=== PATIENT | female | born 1985 | race Caucasian/White ===

== ENCOUNTER 2017-02-14 14:49 | Emergency (ER) | payer OTHER ==
--- NOTE | 2017-02-14 15:11 | EDM.PDOC ---
ED HPI GENERAL MEDICAL PROBLEM - General Stated Complaint: INFECTION ON HIP Time Seen by Provider: 02/14/17 15:11 Source of Information: Reports: Patient - History of Present Illness INITIAL COMMENTS - FREE TEXT/NARRATIVE: Patient is here today for pain and swollen lesion on the inside of her right thigh. She states it started a few days ago and has gotten progressively bigger and more tender. She states that she did feel like she had a fever today however when she checked it she had normal temperature. Patient is not diabetic. Has no history of bleeding or clotting disorders. Had no injury to the area to cause this. Perineal Area Pain Score (Numeric/FACES): 8 - Related Data Allergies Allergy/AdvReac Type Severity Reaction Status Date / Time anise oil Allergy Cannot Verified 02/14/17 15:12 Remember bee pollen Allergy Hives Verified 02/14/17 15:11 morphine Allergy Hallucinati Verified 02/14/17 15:11 ons Home Meds: Home Meds Hydrocodone/Acetaminophen [Hydrocodon-Acetaminophen 5-325] 1 each PO Q4HR PRN # 30 tablet 02/14/17 [Rx] Multivitamin [Daily Multiple Vitamin] 1 tab PO DAILY 02/14/17 [History] Sulfamethoxazole/Trimethoprim [Bactrim Ds Tablet] 1 each PO BID #20 tablet 02/14 [Rx] ED ROS GENERAL - Review of Systems Review Of Systems: See Below Constitutional: Reports: Chills. Denies: Fever, Malaise, Weakness, Fatigue Respiratory: Reports: No Symptoms Cardiovascular: Reports: No Symptoms Skin: Reports: Lumps, Other (Infection to the inside of her left groin) Neurological: Denies: No Symptoms Hematologic/Lymphatic: Reports: No Symptoms ED EXAM, SKIN/RASH Exam: See Below Exam Limited By: No Limitations General Appearance: Alert, WD/WN, Mild Distress Respiratory/Chest: No Respiratory Distress, Lungs Clear, Normal Breath Sounds Cardiovascular: Normal Peripheral Pulses, Regular Rate, Rhythm (Female) Exam: Other (Golf ball size left Bartholin gland abscess with surrounding warmth and erythema. This is quite tender. Lesion is not draining. ) ED SKIN PROCEDURES - I&D Site: Left Bartholin's gland abscess Skin Prep: Providone-Iodine (Betadine), Isopropyl Alcohol (Alcohol) Local Anesthesia - Bupivicaine (Marcaine): 0.5% Plain (9mL) Area Incised With: 11 Blade Drainage: Purulent, Bloody Probed to Break Up Loculations: Yes Sterile Dressing: None (Dressed with gauze and patient was given a pad as well.) Course - Vital Signs Text/Narrative:: Bartholin's gland abscess was drained on the left. Discussed wound care instructions with patient. Recommended warm sitz baths or warm washcloths this area. Will treat with Bactrim 10 days as well. Patient will follow-up with [facility] on Friday or return to the ER if needed. Last Recorded V/S: Last Vital Signs Temp 97.8 F 02/14/17 15:05 Pulse 100 02/14/17 15:05 Resp 16 02/14/17 15:05 BP 134/79 02/14/17 15:05 Pulse Ox 98 02/14/17 15:05 - Orders/Labs/Meds Meds: Medications Discontinued Medications Generic Name Dose Route Start Last Admin Trade Name Freq PRN Reason Stop Dose Admin Hydrocodone Bitart/Acetaminophen 1 tab 02/14/17 15:29 02/14/17 15:34 [place] 325-5 Mg PO 02/14/17 15:30 1 tab ONETIME ONE Administration Bupivacaine HCl 10 ml 02/14/17 15:54 02/14/17 15:59 Sensorcaine-Mpf 0.5% INJECT 02/14/17 15:55 10 ml ONETIME ONE Administration Departure - Departure Time of Disposition: 16:42 Disposition: Home, Self-Care 01 Condition: Good Clinical Impression: Bartholin's gland abscess - Discharge Information Prescriptions: Hydrocodone/Acetaminophen [Hydrocodon-Acetaminophen 5-325] 1 each PO Q4HR PRN # 30 tablet PRN Reason: Pain Sulfamethoxazole/Trimethoprim [Bactrim Ds Tablet] 1 each PO BID #20 tablet Referrals: PCP,Not In Area [Primary Care Provider] - Additional Instructions: Skin warm bath for 15 minutes several times per day or use a warm washcloth to this area. Take full dose of antibiotic, this will cause diarrhea so I recommended probiotic with this as well. Hydrocodone as needed for pain. Follow-up with gynecology on Friday, you can call to schedule us at [phone] or certainly return to ER if needed.
[2017-02-14] MEDS ORDERED: Bupivacaine 0.25%/EPINEPHrine 1:200,000 30 ML SDV INJECT ONE (15:20)
[2017-02-14] MEDS ORDERED: Acetaminophen/HYDROcodone 325-5 MG Tab PO ONE (15:29)
[2017-02-14] MEDS ORDERED: Bupivacaine 0.25%/EPINEPHrine 1:200,000 10 ML SDV INFILT ONE (15:36)
[2017-02-14] MEDS ORDERED: Bupivacaine 0.5% 10 ML SDV INJECT ONE (15:54)
== END 2017-02-14 17:00 | disposition home or self-care (01) ==
LOC: JD.ED 14:49
DX: N75.1 Abscess of Bartholin's gland (principal); Z88.5 Allergy status to narcotic agent; Z91.030 Bee allergy status; Z91.018 Allergy to other foods
CPT/HCPCS: 56420; 99283; A9270; 56405